=== PATIENT | male | born 1970 | race Caucasian/White ===

== ENCOUNTER 2024-06-01 20:03 | Emergency (ER) | payer BC ==
[~2024-06-01] VITALS: Ht 193 cm; Wt 131.5 kg
--- NOTE | 2024-06-01 20:38 | ED.PDOC ---
History of Present Illness HPI Comments 53 y.o male presents to the ED for a chief complaint of SOB associated with a cough that started 3 days ago. Patient reports taking over the counter medication but has not improved. Patient denies any phlegm sputum, fever, chills, chest pain, or contact exposure. Chief Complaint: Flu like Time Seen by MD: 20:30 Reviewed Notes: Nurses Notes, Medications, Allergies Allergies: Coded Allergies: NO KNOWN ALLERGIES (Unverified , 06/01/24) Information Source: Patient Mode of Arrival: Ambulatory Severity: Moderate Timing: Days (3) Duration: Since onset Past Medical History PAST MEDICAL HISTORY: Denies Surgical History: Denies all surgeries Family History Family History: Reviewed,noncontributory to illness Social History Smoker: Non-Smoker Alcohol: Denies ETOH Use Drugs: Denies Drug Use Lives In: Home Constitutional: denies: chills, diaphoresis, fatigue, fever, malaise, sweats, weakness, others EENTM: denies: blurred vision, double vision, ear bleeding, ear discharge, ear drainage, ear pain, ear ringing, eye pain, eye redness, hearing loss, mouth pain, mouth swelling, nasal discharge, nose bleeding, nose congestion, nose pain, photophobia, tearing, throat pain, throat swelling, voice changes, others Respiratory: reports: cough, SOB at rest, shortness of breath, SOB with excertion; denies: hemoptysis, orthopnea, stridor, wheezing, others Cardiovascular: denies: chest pain, dizzy spells, diaphoresis, Dyspnea on exertion, edema, irregular heart beat, left arm pain, lightheadedness, palpitations, PND, syncope, others Gastrointestinal: denies: abdomen distended, abdominal pain, blood streaked bowels, constipated, diarrhea, dysphagia, difficulty swallowing, hematemesis, melena, nausea, poor appetite, poor fluid intake, rectal bleeding, rectal pain, vomiting, others Genitourinary: denies: burning, dysuria, flank pain, frequency, hematuria, incontinence, penile discharge, penile sore, pain, testicle pain, testicle swelling, urgency, others Neurological: denies: dizziness, fainting, headache, left sided numbness, left sided weakness, numbness, paresthesia, pre-existing deficit, right sided numbness, right sided weakness, seizure, speech problems, tingling, tremors, weakness, others Musculoskeletal: denies: back pain, gout, joint pain, joint swelling, muscle pain, muscle stiffness, neck pain, others Integumetry: denies: bruises, change in color, change in hair/nails, dryness, laceration, lesions, lumps, rash, wounds, others Allergic/Immunocompromised: denies: Difficulty Healing, Frequent Infections, Hives, Itching, others Hematologic/Lymphatic: denies: anemia, blood clots, easy bleeding, easy bruising, swollen glands, others Endocrine: denies: excessive hunger, excessive sweating, excessive thirst, excessive urination, flushing, intolerance to cold, intolerance to heat, unexplained weight gain, unexplained weight loss, others Psychiatric: denies: anxiety, bipolar disorder, depression, hopeless, panic disorder, schizophrenia, sleepless, suicidal, others All Other Systems: Reviewed and Negative Physical Exam General Appearance: No Apparent Distress, Normal HEENT: Normal ENT Inspection, Pharynx Normal, TMs Normal Neck: Full Range of Motion, Non-Tender, Normal, Normal Inspection Respiratory: Chest Non-Tender, Lungs Clear, No Accessory Muscle Use, No Respiratory Distress, Normal Breath Sounds Cardiovascular: No Edema, No JVD, No Murmur, No Gallop, Normal Peripheral Pulses, Regular Rate/Rhythm Breast Exam: Deferred Gastrointestinal: No Organomegaly, Non Tender, No Pulsatile Mass, Normal Bowel Sounds, Soft Genitalia: Deferred Pelvic: Deferred Rectal: Deferred Extremities: No calf tenderness, Normal capillary refill, Normal inspection, Normal range of motion, Non-tender, No pedal edema Musculoskeletal : Apperance: Normal Neurologic: Alert, inside sales manager II-XII nml as Tested, No Motor Deficits, Normal Affect, Normal Mood, No Sensory Deficits Cerebellar Function: Normal Reflexes: Normal Skin: Dry, Normal Color, Warm Lymphatic: No Adenopathy Was a procedure done? Was a procedure done?: No Differential Dx Considerations may include: URI, Dehydration, Electrolyte imbalance, Bronchitis, Influenza, Pneumonia, viral syndrome X-Ray, Labs, Meds, VS Vital Signs Date Time Temp Pulse Resp B/P (MAP) Pulse Ox O2 Delivery O2 Flow Rate FiO2 06/01/24 20:40 98.7 85 20 125/62 (83) 96 98.7 Lab Test 06/01/24 20:34 Range/Units Influenza Type A Antigen Negative Negative Influenza Type B Antigen Negative Negative SARS-CoV-2 Antigen (Rapid) Negative NEGATIVE X-Ray, Labs, Meds, VS Comment Imaging: CT chest IMPRESSION: 1. Small nodules in the left upper and right upper lobe. In the right upper lobe is a cluster of 3 or 4 nodules ranging from 11-14 mm. In the left upper lung field are scattered nodules measuring between 7 and 11 mm. Lower lung harrison appear clear. Correlate for infectious etiology and/or follow-up in 6 months according to clinical setting. Radiation optimization: All CT scans at this facility use at least one of these dose optimization techniques: automated exposure control mA and/or kV adjustment per patient size (includes targeted exams where dose is matched to clinical indication) or iterative reconstruction. HS:Y Laboratory: Labs reviewed and interpreted by this provider. No significant abnormalities noted. Patient has prior medical visits reviewed. Med reconciliation performed Vital signs reviewed Time of 1ST Reevaluation: 20:38 Reevaluation 1ST: Unchanged Patient Education/Counseling: Diagnosis, Treatment, Prognosis, Need For Follow Up (Follow up in the emergency department in the next 24-48 hours if symptoms worsen. It was advised to follow up with your primary care doctor in the next 3-4 days for further evaluation.) Family Education/Counseling: No Family Present Departure 1 Departure Time of Disposition: 23:02 Impression: Primary Impression: Pneumonia Qualified Codes: J18.9 - Pneumonia, unspecified organism Disposition: HOME / SELF CARE / HOMELESS Condition: Fair e-Prescriptions Promethazine-Dm (Promethazine Dm 6.25-15 mg/5Ml) 1 Shayla Shayla 5 ML PO TID PRN, #240 ML Prov: MICHAEL STRONGP 06/01/24 Prednisone (Prednisone) 20 Mg Tab 20 MG PO DAILY for 5 Days, #5 MG Prov: MICHAEL STRONGP 06/01/24 Amoxicillin & Pot Clavulanate (AUGMENTIN TABLET) 875 Mg Tb 875 MG PO BID for 10 Days, #20 TAB Prov: MICHAEL STRONGP 06/01/24 Discharged With: Self Critical Care Note Critical Care Time?: No Stability Stability form required: No I personally scribed for MICHAEL STRONG ([facility]) on 06/01/24 at 20:38. Electronically submitted by Mishel Hutchinson ([facility]). MICHAEL STRONG Jun 01, 2024 20:38
--- NOTE | 2024-06-01 21:13 | DVH ---
CHEST RADIOGRAPH Indication: cough Technique: Single frontal view of the chest was obtained Comparison: None Findings/ IMPRESSION: Nodular shaped opacity in the right upper lung zone measuring 1.3 cm concerning for developing infect ion versus nodule/mass. Consider further evaluation with CT chest as clinically indicated.
[2024-06-01 21:16] LABS: COVID19 ANTIGEN SOFIA FIA NEGATIVE (NEGATIVE); Rapid Influenza A Negative (Negative); Rapid Influenza B Negative (Negative)
--- NOTE | 2024-06-01 22:29 | DVH ---
Procedure: CT CHEST WITHOUT CONTRAST Reason for study/Clinical History: cough Comparison Study: None available at time of dictation. Exam Date: 06/01/2024 09:46 PM TECHNIQUE: Multidetector CT of the chest was performed from the lung apices to the upper abdomen with out the use of intravenous contract. Axial, coronal and sagittal multiplanar reformats were performed . Radiation Dose Information: CT Dose: CTDI volume is 22.82 mGy. Dose-length product is 1025.07 mGy*cm The dose indicators for CT are the volume Computed Tomography (CT) Dose Index (CTDIvol) and the Dose Length Product (DLP), and are measured in units of mGy and mGy-cm, respectively. These indicators are not patient dose, but values generated from the CT scanner acquisition factors. The report includes radiation exposure data for exposures received during this examination. FINDINGS: Lower neck: Normal thyroid. Lungs: Small cluster of nodules in the right upper lung field measuring 11 mm, 13 mm, 14 mm which are the largest visualized. There other smaller nodules in the right upper lung field. right upper lung field. Left upper lung field there is a 7 mm nodule in series 3 image 22. Left upper lung field is a 10-11 mm soft tissue nodule series 3 image 26. Heart/Vascular Structures: Normal heart size. No pericardial effusion. Lymph Nodes: No adenopathy Pleura: No pleural effusion or significant pneumothorax. Musculoskeletal: No acute osseous abnormality. Soft tissues: Normal. Upper abdomen: Limited portions of the upper abdomen are unremarkable. IMPRESSION: 1. Small nodules in the left upper and right upper lobe. In the right upper lobe is a cluster of 3 or 4 nodules ranging from 11-14 mm. In the left upper lung field are scattered nodules measuring betwe en 7 and 11 mm. Lower lung harrison appear clear. Correlate for infectious etiology and/or follow-up in 6 months according to clinical setting. Radiation optimization: All CT scans at this facility use at least one of these dose optimization radha hniques: automated exposure control mA and/or kV adjustment per patient size (includes targeted exam s where dose is matched to clinical indication) or iterative reconstruction. HS:Y
[2024-06-01] MEDS ORDERED: PROM1SOL4 PO (23:04)
[2024-06-01] MEDS ORDERED: PRED20TA2 PO (23:04)
[2024-06-01] MEDS ORDERED: AUG875T PO (23:04)
[2024-06-01 23:36] VITALS: BP 125/62; TEMP 98.7
[2024-06-01 23:44] VITALS: PULSE 85; RESP 20; O2SAT 96
== END 2024-06-01 23:45 | disposition home or self-care (01) ==
LOC: ER 20:03
DX: J18.9 Pneumonia, unspecified organism (principal); Z20.822 Contact with and (suspected) exposure to COVID-19
CPT/HCPCS: 36415; 71045; 71250; 87426; 87804

== ENCOUNTER 2025-02-03 07:02 | Day surgery (SDC) | payer BC ==
[2025-01-27 10:55] LABS: Hematocrit 44.8 % (41.0-53.0); Hemoglobin 15.1 g/dL (13.5-17.5); Mean Corpuscular Hemoglobin 30.8 pg (28.0-32.0); Mean Corpuscular Volume 91.5 fL (80.0-100.0); Nucleated Red Blood Cells % 0.0 %
[2025-01-27 11:03] LABS: Urine Protein, UAD Negative (Negative)
[2025-01-27 11:11] LABS: INR 1.03 (0.9-1.15); Partial Thromboplastin Time 29.9 SEC (24.5-34.5); Prothrombin Time 10.9 sec (9.3-11.8)
[2025-01-27 11:27] LABS: Alanine Aminotransferase 34 U/L (7-40); Albumin 4.7 g/dL (3.2-4.8); Alkaline Phosphatase 62 U/L (46-116); Anion Gap 8 (5-15); BUN/Creatinine Ratio 10.8 (10.0-20.0); Bilirubin, Total 0.9 mg/dL (0.2-1.0); Blood Urea Nitrogen 10 mg/dL (9-23); Calcium 9.6 mg/dL (8.7-10.4); Carbon Dioxide 29 mmol/L (20-31); Chloride 105 mmol/L (98-107); Glucose 97 mg/dL (74-106); Potassium 4.1 mmol/L (3.5-5.1); Sodium 142 mmol/L (136-145); Total Protein 7.8 g/dL (5.7-8.2)
[~2025-02-03] VITALS: Ht 190.5 cm; Wt 136.1 kg
[~2025-02-03 07:02] MED LIST: AMLO1TAB23 PO; ATOR-507 PO; HYDR12.59 PO; IBUP-1456 PO; LISI40TA16 PO
[2025-02-03] MEDS ORDERED: BUPIVACAINE HCL 50 ML ONE (07:13)
[2025-02-03] MEDS ORDERED: SUCCINYLCHOLINE CHLORIDE 20 MG/ML 10ML VIAL IV ONE (07:25)
[2025-02-03] MEDS ORDERED: PROPOFOL 10 MG/ML 20 ML IV ONE ×2 (07:29→10:07)
[2025-02-03] MEDS ORDERED: MEPERIDINE HCL (25 MG/ML) 1ML VIAL ONE ×3 (07:29→12:04)
[2025-02-03] MEDS ORDERED: fentaNYL CITRATE 5 ML ONE ×2 (07:29→10:08)
[2025-02-03] MEDS: ceFAZolin 2 GM/D5W50ml 50 ML IV ONE (07:35)
[2025-02-03] MEDS ORDERED: ROPIVACAINE 0.5% (5MG/ML) 20ML AMPULE IJ ONE (07:40)
[2025-02-03] MEDS ORDERED: ONDANSETRON HCL 4 MG/2 ML VIAL ONE ×2 (08:17→11:14)
[2025-02-03] MEDS ORDERED: PHENYLEPHRINE HCL 10 MG/ML VL ONE (08:34)
[2025-02-03] MEDS: BUPIVACAINE 0.5% INJ 50ML VIAL IJ ONE (09:29)
[2025-02-03] MEDS ORDERED: HYDR1TAB97 PO (09:35)
[2025-02-03] MEDS ORDERED: CEPH500C PO (09:36)
[2025-02-03] MEDS ORDERED: ASPI-498 OR (09:36)
[2025-02-03 09:44] VITALS: PULSE 79; RESP 11; TEMP 97.8; O2SAT 93
[2025-02-03] MEDS ORDERED: METOCLOPRAMIDE HCL 5MG/ml INJ 2ml VIAL IV PRN (10:00)
[2025-02-03] MEDS: ACETAMINOPHEN IV 1000 MG/100ML (10MG/ML) IV PRN (10:02)
[2025-02-03] MEDS: HYDROmorphone HCL 2 MG/ML VL/or syr IV PRN (10:03)
[2025-02-03 10:35] VITALS: PULSE 71; RESP 12; O2SAT 95
[2025-02-03] MEDS: MEPERIDINE HCL (25 MG/ML) 1ML VIAL IV PRN (10:41)
[2025-02-03] MEDS: ONDANSETRON HCL 4 MG/2 ML VIAL IV PRN (11:01)
[2025-02-03] MEDS ORDERED: ALBUTEROL SULF 2.5 MG/0.5ML(0.5%) NEB SOLN ONE (11:56)
[2025-02-03 12:01] VITALS: PULSE 67; RESP 20; O2SAT 94
[2025-02-03 12:08] VITALS: PULSE 78; RESP 18; O2SAT 98
[2025-02-03] MEDS: ALBUTEROL SULF 2.5 MG/0.5ML(0.5%) NEB SOLN NEB ONE (12:08)
[2025-02-03 12:29] VITALS: BP 139/58
[2025-02-03 12:45] VITALS: PULSE 68; RESP 12; O2SAT 95
[2025-02-03] MEDS ORDERED: fentaNYL CITRATE 100 MCG/2 ML VL ONE (13:04)
--- NOTE | 2025-02-03 17:37 | DVHOP ---
DATE OF SURGERY: 02/03/2025 PREOPERATIVE DIAGNOSIS: Right shoulder rotator cuff tear. POSTOPERATIVE DIAGNOSIS: Right shoulder rotator cuff tear. PROCEDURE PERFORMED: Right shoulder arthroscopy with rotator cuff repair and subacromial decompression. ANESTHESIA: General with interscalene block. COMPLICATIONS: None. BLOOD LOSS: Minimal. IMPLANTS USED: Arthrex FiberTak x 1, OSSIOfiber anchor x 1. INDICATION FOR PROCEDURE: The patient is a 54-year-old male who presented to the clinic with a history of right shoulder pain. Clinical and radiological evaluation demonstrated near-complete rotator cuff tear. Nonoperative and operative management options were discussed. Surgery in the form of shoulder arthroscopy with rotator cuff repair was discussed with him. Benefits, risks, and treatment alternatives were discussed. Specific complications of the surgery such as neurovascular injury, infection, arthrofibrosis, loss of limb or life were discussed. He decided to proceed with the surgical option. PROCEDURE IN DETAIL: The patient was identified in the preoperative holding area and the surgical site was marked. The consent was verified. He was brought into the operating room and placed supine on the operating table. General anesthesia was administered. Intravenous antibiotics were given. He was brought into the beach chair position. All the bony prominences were appropriately padded. His face was secured with a face mask. The extremity was prepped and draped in the usual sterile manner. Timeout was called out to confirm the identity of the patient, the nature of surgery, the site of surgery, the availability of implants, x-rays, and allergies to medications. Standard posterior portal was established. A 30-degree scope was inserted. Anterior anterior portal was established. A probe was inserted and the findings were as follows: * Near complete tear of the supraspinatus. * Intact subscapularis. * Intact glenohumeral joint. * Intact biceps tendon. * Intact labrum. Based on these findings, I decided to proceed with the rotator cuff repair. The subacromial space was entered. Bursitis was noted. Bursectomy was carried out. The rotator cuff tear was noted. This was a small-sized tear. Minimal retraction was noted. I decided to repair it with a double-row technique. I had a broad stature because of his body habitus. An additional portal was made laterally and anterolaterally. The scope was in the lateral portal and the cannula was in the anterolateral portal. A percutaneous portal was also used. This was a superior portal. A spinal needle was used. Next, a drill guide was used to insert the medial row anchor. This was a triple-loaded anchor. All 6 sutures were passed through the rotator cuff tendon. They were tied for excellent fixation. The sutures were now inserted into the lateral row anchor. A punch was used. Next, the anchor was inserted with a screw. Excellent fixation was noted. Watertight repair was noted. Repair was complete. Subacromial decompression was completed including acromioplasty. The arm was placed in a shoulder immobilizer after irrigation and closure with 3-0 nylon. Sterile dressing was applied. DISPOSITION: Good, the patient was extubated and taken to the recovery without any complications. PLAN: To stay in the brace at all times except for shower and hygiene. He may also do range of motion exercises of the elbow and the wrist every day. Pendulum exercises can also be initiated immediately followed by physical therapy in 1-2 weeks. MD MAX Carter/KELSY TID: [id number] RECEIPT: [id number] [facility]
== END 2025-02-03 12:51 | disposition home or self-care (01) ==
LOC: SUR 07:02
PROVIDERS: ATTEND Orthopaedic Surgery Sports Medicine
DX: M75.121 Complete rotator cuff tear or rupture of right shoulder, not specified as traumatic (principal); M75.51 Bursitis of right shoulder; G89.18 Other acute postprocedural pain; I10 Essential (primary) hypertension; E78.5 Hyperlipidemia, unspecified; E66.9 Obesity, unspecified; Z68.37 Body mass index [BMI] 37.0-37.9, adult; Z79.82 Long term (current) use of aspirin; Z79.899 Other long term (current) drug therapy; Z98.890 Other specified postprocedural states; Z87.891 Personal history of nicotine dependence
CPT/HCPCS: 29826; 29827; 36415; 64415; 80053; 81001; 85025; 85610; 85730; 94640; C1713; J0169; J0330; J0690; J1171; J2175; J2371; J2405; J2704; J2795; J3010; J3490; A4565; J0131